=== PATIENT | female | born 1955 | race Caucasian/White ===

== ENCOUNTER 2020-09-12 11:57 | Emergency (ER) | payer MEDICARE, BC ==
[~2020-09-12] VITALS: Ht 157.5 cm; Wt 58.6 kg
[~2020-09-12 11:57] MED LIST: CYCL-1 PO
[2020-09-12 12:01] VITALS: BP 137/72
[2020-09-12] MEDS ORDERED: HYDROcodone/acetaminophen 5mg/325mg tablet PO ONE (13:00)
[2020-09-12] MEDS ORDERED: LIDO700A32 TOP (13:13)
[2020-09-12] MEDS ORDERED: HYDR-3965 PO (13:13)
== END 2020-09-12 13:36 | disposition home or self-care (01) ==
LOC: ER 11:58
DX: S20.212A Contusion of left front wall of thorax, initial encounter (principal); G89.29 Other chronic pain; Z72.89 Other problems related to lifestyle; Z98.890 Other specified postprocedural states; Z79.899 Other long term (current) drug therapy; W01.0XXA Fall on same level from slipping, tripping and stumbling without subsequent striking against object, initial encounter; Y93.89 Activity, other specified; Y92.89 Other specified places as the place of occurrence of the external cause; Y99.8 Other external cause status
CPT/HCPCS: 71046; 99283

== ENCOUNTER 2023-02-23 15:41 | Emergency (ER) | payer BC, MEDICARE ==
[~2023-02-23 15:41] MED LIST changes: +LIDO700A32 TOP
== END 2023-02-23 17:15 | disposition left against medical advice (07) ==
LOC: ER 15:41
DX: R58 Hemorrhage, not elsewhere classified (principal); Z53.21 Procedure and treatment not carried out due to patient leaving prior to being seen by health care provider